=== PATIENT | female | born 1935 | race Caucasian/White ===

== ENCOUNTER 2016-10-03 17:51 | Inpatient (IN) | payer OTHER ==
[~2016-10-03] VITALS: Ht 165.1 cm; Wt 70.3 kg
[2016-10-03 20:02] LABS: EOSINOPHIL (%) 0.7 % (0-5); EOSINOPHIL COUNT 0.1 K/uL (0-0.3); HEMATOCRIT 37.6 % (36.0-46.0); IMMATURE GRANULOCYTE (%) 0.6 % (0.0-0.7); IMMATURE GRANULOCYTE COUNT 0.1 K/uL; INSTRUMENT ABS NEUTROPHIL CT 7.7 K/uL; LYMPHOCYTE COUNT 0.7 K/uL (1.0-2.8); MCH 30.2 PG (29.0-34.0); MCV 91.5 FL (83-99); MEAN PLAT.VOLUME 8.4 uM^3 (9.5-12.4); MONOCYTE (%) 3.8 % (3-12); MONOCYTE COUNT 0.3 K/uL (0-0.8); NEUTROPHIL (%) 86.5 % (45-76); NEUTROPHIL COUNT 7.7 K/uL (1.8-6.4); PLATELET COUNT 211 K/uL (156-360); RBC DIS.WIDTH-CV 13.5 % (11.8-14.6); RBC DIS.WIDTH-SD 45.9 % (39-53); RED BLOOD COUNT 4.11 M/uL (3.80-5.20); WHITE BLOOD COUNT 8.9 K/uL (4.1-10.2)
[2016-10-03] MEDS ORDERED: LEVOTHYROXINE50 MCG PO (20:13)
[2016-10-03 20:14] LABS: INTER. NORMALIZED RATIO 1.1; PROTHROMBIN TIME 10.7 (9.2-11.2); PTT 33.1 (25-32)
[2016-10-03] MEDS ORDERED: ASPIRIN81 M2 PO (20:14)
[2016-10-03] MEDS ORDERED: NAPROXEN250 MG PO (20:14)
[2016-10-03 22:51] LABS: CHLORIDE 108 mEq/L (99-109); POTASSIUM 4.6 mEq/L (3.7-5.4); SODIUM 140 mEq/L (136-147)
[2016-10-03 22:53] LABS: GLUCOSE 104 mg/dL (70-99)
[2016-10-03 22:54] LABS: ANION GAP 9 MEQ/L (2-14)
[2016-10-03 22:55] LABS: TOTAL BILIRUBIN 0.7 mg/dL (0.0-1.0)
[2016-10-03 22:56] LABS: ALKALINE PHOSPHATASE 76 IU/L (3-129)
[2016-10-03 22:57] LABS: GFR ESTIMATE (CALCULATED) 57 mL/min/
[2016-10-03 22:58] LABS: UREA NITROGEN (BUN) 19 mg/dL (9-23)
[2016-10-04] VITALS (9 sets, daily range): BP systolic 135–190; BP diastolic 67–84
[2016-10-04 01:38] LABS: ADD MIUA? YES; BILIRUBIN NEGATIVE; BLOOD NEGATIVE; COLOR YELLOW ((YELLOW)); GLUCOSE (STRIP) NEGATIVE; KETONES 5; LEUKOCYTES TRACE; NITRITE NEGATIVE; PROTEIN (STRIP) NEGATIVE; SPECIFIC GRAVITY 1.014 (1.000-1.030); UROBILINOGEN 0.2 MG/DL (0.2-1.0)
[2016-10-04 01:42] LABS: BACTERIA RARE /HPF; EPITHELIAL CELLS NONE SEEN /HPF; MUCUS TRACE /LPF; RED BLOOD CELLS 0-5 /HPF (0-5); UCUL ADDED? NO; WHITE BLOOD CELLS 0-5 /HPF (0-5)
[2016-10-05 04:10] VITALS: BP 109/55
[2016-10-05 06:19] LABS: ANION GAP 6 MEQ/L (2-14); CHLORIDE 107 MEQ/L (99-109); POTASSIUM 4.4 MEQ/L (3.7-5.4); SAMPLE HEMOLYSIS CHECK 0; SAMPLE ICTERIC CHECK 0; SAMPLE LIPEMIA CHECK 0; SODIUM 138 MEQ/L (136-147)
[2016-10-05 06:24] LABS: GFR ESTIMATE (CALCULATED) 57 mL/min/; GLUCOSE 109 mg/dL (70-99); UREA NITROGEN (BUN) 18 mg/dL (9-23)
[2016-10-05 06:34] LABS: HEMATOCRIT 28.1 % (36.0-46.0); MCH 30.6 PG (29.0-34.0); MCHC 32.7 G/DL (30.0-36.0); MCV 93.4 FL (83-99); MEAN PLAT.VOLUME 8.9 uM^3 (9.5-12.4); PLATELET COUNT 152 K/uL (156-360); RBC DIS.WIDTH-CV 13.8 % (11.8-14.6); RBC DIS.WIDTH-SD 47.5 % (39-53)
[2016-10-05 06:35] LABS: RED BLOOD COUNT 3.01 M/uL (3.80-5.20); WHITE BLOOD COUNT 14.3 K/uL (4.1-10.2)
[2016-10-05 08:18] VITALS: BP 116/55
[2016-10-05 11:55] VITALS: BP 130/62
[2016-10-05 16:05] VITALS: BP 134/63
[2016-10-05 23:45] VITALS: BP 124/57
[2016-10-06 06:10] LABS: ANION GAP 6 MEQ/L (2-14); CHLORIDE 112 MEQ/L (99-109); GFR ESTIMATE (CALCULATED) 57 mL/min/; GLUCOSE 106 mg/dL (70-99); POTASSIUM 4.1 MEQ/L (3.7-5.4); SAMPLE HEMOLYSIS CHECK 0; SAMPLE ICTERIC CHECK 0; SAMPLE LIPEMIA CHECK 0; SODIUM 140 MEQ/L (136-147); UREA NITROGEN (BUN) 19 mg/dL (9-23)
[2016-10-06 06:32] LABS: MCH 29.7 PG (29.0-34.0); MCV 92.9 FL (83-99); PLATELET COUNT 135 K/uL (156-360); RBC DIS.WIDTH-CV 14.2 % (11.8-14.6); RBC DIS.WIDTH-SD 48.1 % (39-53); RED BLOOD COUNT 2.69 M/uL (3.80-5.20)
[2016-10-06 07:00] LABS: WHITE BLOOD COUNT 6.7 K/uL (4.1-10.2)
[2016-10-06 07:52] VITALS: BP 154/67
[2016-10-06 14:24] LABS: HEMATOCRIT 26.5 % (36.0-46.0); MCV 93.6 FL (83-99)
[2016-10-06 16:10] VITALS: BP 179/74
[2016-10-06 23:38] VITALS: BP 156/79
[2016-10-07 05:41] LABS: HEMATOCRIT 24.6 % (36.0-46.0); MCH 30.6 PG (29.0-34.0); MCHC 32.9 G/DL (30.0-36.0); MCV 92.8 FL (83-99); MEAN PLAT.VOLUME 9.1 uM^3 (9.5-12.4); PLATELET COUNT 146 K/uL (156-360); RBC DIS.WIDTH-CV 14.1 % (11.8-14.6); RBC DIS.WIDTH-SD 47.7 % (39-53); RED BLOOD COUNT 2.65 M/uL (3.80-5.20); WHITE BLOOD COUNT 5.9 K/uL (4.1-10.2)
[2016-10-07 05:52] LABS: ANION GAP 5 MEQ/L (2-14); CHLORIDE 109 MEQ/L (99-109); GFR ESTIMATE (CALCULATED) > 59 mL/min/; GLUCOSE 87 mg/dL (70-99); POTASSIUM 3.9 MEQ/L (3.7-5.4); SAMPLE HEMOLYSIS CHECK 0; SAMPLE ICTERIC CHECK 0; SAMPLE LIPEMIA CHECK 0; SODIUM 139 MEQ/L (136-147); UREA NITROGEN (BUN) 13 mg/dL (9-23)
[2016-10-07 08:36] VITALS: BP 188/80
[2016-10-07] MEDS ORDERED: CLONIDINE HCL0.1 MG PO (10:53)
[2016-10-07] MEDS ORDERED: LOPRESSOR25 MG PO (10:53)
[2016-10-07] MEDS ORDERED: THERAGRAN1 TABLET PO (10:53)
[2016-10-07] MEDS ORDERED: VITAMIN D-32000 UNI2 PO (10:53)
[2016-10-07] MEDS ORDERED: HYDROCODON-ACE1 EAC7 PO (10:53)
[2016-10-07] MEDS ORDERED: KADIAN10 MG IV (16:32)
== END 2016-10-07 15:55 | DRG 482 ==
LOC: EME 17:51 → EDOF 20:53 → 3EAST 20:53
PROVIDERS: Emergency Medicine; Hospitalist; Physician Assistant Medical
PROC: 0QS706Z Reposition Left Upper Femur with Intramedullary Internal Fixation Device, Open Approach (ICD-10-PCS; principal; 2016-10-04)
DX: S72.142A Displaced intertrochanteric fracture of left femur, initial encounter for closed fracture (principal); I12.9 Hypertensive chronic kidney disease with stage 1 through stage 4 chronic kidney disease, or unspecified chronic kidney disease; N18.3 Chronic kidney disease, stage 3 (moderate); D64.9 Anemia, unspecified; E03.9 Hypothyroidism, unspecified; W19.XXXA Unspecified fall, initial encounter; M19.90 Unspecified osteoarthritis, unspecified site; Z79.82 Long term (current) use of aspirin; R01.1 Cardiac murmur, unspecified; R09.02 Hypoxemia; Y92.9 Unspecified place or not applicable; Y99.9 Unspecified external cause status
CPT/HCPCS: 71010; 73501; 73502; 76000; 80048; 80053; 81003; 82272; 82306; 85014; 85018; 85025; 85027; 85610; 85730; 86850; 86900; 86901; 93005; 93306; 94799; 99281; 99285; C1713; J0690; J1650; J2270; J3010; J7030; J7040

== ENCOUNTER 2016-10-07 09:58 | Inpatient (IN) | payer OTHER ==
[~2016-10-07] VITALS: Ht 165.1 cm; Wt 72.4 kg
[~2016-10-07 09:58] MED LIST: ASPIRIN81 M2 PO; LEVOTHYROXINE50 MCG PO; NAPROXEN250 MG PO
[2016-10-07] MEDS ORDERED: CLONIDINE HCL0.1 MG PO (10:53)
[2016-10-07] MEDS ORDERED: VITAMIN D-32000 UNI2 PO (10:53)
[2016-10-07] MEDS ORDERED: LOPRESSOR25 MG PO (10:53)
[2016-10-07] MEDS ORDERED: THERAGRAN1 TABLET PO (10:53)
[2016-10-07] MEDS ORDERED: HYDROCODON-ACE1 EAC7 PO (10:53)
[2016-10-07 16:00] VITALS: BP 190/76
[2016-10-07] MEDS ORDERED: KADIAN10 MG IV (16:32)
[2016-10-07 17:18] VITALS: BP 202/83
[2016-10-07 17:19] VITALS: BP 178/78
[2016-10-08 05:43] LABS: HEMATOCRIT 23.9 % (36.0-46.0); MCH 30.2 PG (29.0-34.0); MCHC 32.6 G/DL (30.0-36.0); MCV 92.6 FL (83-99); MEAN PLAT.VOLUME 9.2 uM^3 (9.5-12.4); PLATELET COUNT 161 K/uL (156-360); RBC DIS.WIDTH-CV 14.2 % (11.8-14.6); RBC DIS.WIDTH-SD 48.8 % (39-53); RED BLOOD COUNT 2.58 M/uL (3.80-5.20); WHITE BLOOD COUNT 6.5 K/uL (4.1-10.2)
[2016-10-08 05:58] LABS: ALKALINE PHOSPHATASE 53 IU/L (3-129); ANION GAP 7 MEQ/L (2-14); CHLORIDE 107 MEQ/L (99-109); GFR ESTIMATE (CALCULATED) > 59 mL/min/; GLUCOSE 93 mg/dL (70-99); POTASSIUM 4.2 MEQ/L (3.7-5.4); SAMPLE HEMOLYSIS CHECK 0; SAMPLE ICTERIC CHECK 0; SAMPLE LIPEMIA CHECK 0; SODIUM 140 MEQ/L (136-147); UREA NITROGEN (BUN) 13 mg/dL (9-23)
[2016-10-08 06:12] VITALS: BP 170/76
[2016-10-08 15:00] VITALS: BP 143/67
[2016-10-09 05:00] VITALS: BP 148/65
[2016-10-09 05:53] LABS: HEMATOCRIT 23.8 % (36.0-46.0); MCH 29.9 PG (29.0-34.0); MCHC 32.8 G/DL (30.0-36.0); MCV 91.2 FL (83-99); MEAN PLAT.VOLUME 8.9 uM^3 (9.5-12.4); PLATELET COUNT 187 K/uL (156-360); RBC DIS.WIDTH-SD 46.5 % (39-53); RED BLOOD COUNT 2.61 M/uL (3.80-5.20); WHITE BLOOD COUNT 7.1 K/uL (4.1-10.2)
[2016-10-09 15:21] VITALS: BP 116/58
[2016-10-10 04:20] VITALS: BP 167/72
[2016-10-10 15:22] VITALS: BP 141/63
[2016-10-11 05:32] VITALS: BP 139/63
[2016-10-11 10:04] LABS: POINT-OF-CARE METER ID UU14174215
[2016-10-11 10:12] LABS: EOSINOPHIL (%) 1.6 % (0-5); EOSINOPHIL COUNT 0.1 K/uL (0-0.3); HEMATOCRIT 26.5 % (36.0-46.0); IMMATURE GRANULOCYTE (%) 1.6 % (0.0-0.7); IMMATURE GRANULOCYTE COUNT 0.1 K/uL; INSTRUMENT ABS NEUTROPHIL CT 5.2 K/uL; LYMPHOCYTE COUNT 1.1 K/uL (1.0-2.8); MCH 30.2 PG (29.0-34.0); MCHC 32.5 G/DL (30.0-36.0); MEAN PLAT.VOLUME 8.5 uM^3 (9.5-12.4); MONOCYTE (%) 6.9 % (3-12); MONOCYTE COUNT 0.5 K/uL (0-0.8); NEUTROPHIL (%) 73.6 % (45-76); NEUTROPHIL COUNT 5.2 K/uL (1.8-6.4); RBC DIS.WIDTH-CV 14.6 % (11.8-14.6); RBC DIS.WIDTH-SD 48.8 % (39-53); RED BLOOD COUNT 2.85 M/uL (3.80-5.20); WHITE BLOOD COUNT 7.1 K/uL (4.1-10.2)
[2016-10-11 10:13] LABS: PLATELET COUNT 246 K/uL (156-360)
[2016-10-11 10:41] LABS: TROP-I INTERPRETATION NEGATIVE; TROPONIN-I < 0.01 ng/mL (0.0-0.30)
[2016-10-11 10:57] LABS: CHLORIDE 106 mEq/L (99-109); SODIUM 137 mEq/L (136-147)
[2016-10-11 10:58] LABS: GLUCOSE 100 mg/dL (70-99)
[2016-10-11 11:00] LABS: ANION GAP 11 MEQ/L (2-14)
[2016-10-11 11:02] LABS: GFR ESTIMATE (CALCULATED) > 59 mL/min/
[2016-10-11 11:03] LABS: UREA NITROGEN (BUN) 16 mg/dL (9-23)
[2016-10-11 16:01] VITALS: BP 177/77
[2016-10-12 04:50] VITALS: BP 168/74
[2016-10-12 15:00] VITALS: BP 140/65
[2016-10-13 04:55] LABS: MCV 94.1 FL (83-99); MEAN PLAT.VOLUME 8.6 uM^3 (9.5-12.4); PLATELET COUNT 298 K/uL (156-360); RBC DIS.WIDTH-CV 16.2 % (11.8-14.6); RBC DIS.WIDTH-SD 49.5 % (39-53); RED BLOOD COUNT 2.87 M/uL (3.80-5.20); WHITE BLOOD COUNT 7.4 K/uL (4.1-10.2)
[2016-10-13 05:30] VITALS: BP 165/77
[2016-10-13 14:41] VITALS: BP 142/65
[2016-10-14 05:00] LABS: HEMATOCRIT 28.2 % (36.0-46.0); MCH 30.3 PG (29.0-34.0); MCHC 31.6 G/DL (30.0-36.0); MCV 95.9 FL (83-99); MEAN PLAT.VOLUME 8.7 uM^3 (9.5-12.4); PLATELET COUNT 304 K/uL (156-360); RBC DIS.WIDTH-CV 16.9 % (11.8-14.6); RBC DIS.WIDTH-SD 51.9 % (39-53); RED BLOOD COUNT 2.94 M/uL (3.80-5.20); WHITE BLOOD COUNT 7.1 K/uL (4.1-10.2)
[2016-10-14 05:09] VITALS: BP 162/79
[2016-10-14 15:00] VITALS: BP 143/72
[2016-10-15 05:22] VITALS: BP 158/67
[2016-10-15 06:00] LABS: HEMATOCRIT 27.2 % (36.0-46.0); MCH 31.1 PG (29.0-34.0); MCHC 32.4 G/DL (30.0-36.0); MCV 96.1 FL (83-99); MEAN PLAT.VOLUME 8.5 uM^3 (9.5-12.4); PLATELET COUNT 331 K/uL (156-360); RBC DIS.WIDTH-CV 17.3 % (11.8-14.6); RBC DIS.WIDTH-SD 53.9 % (39-53); RED BLOOD COUNT 2.83 M/uL (3.80-5.20); WHITE BLOOD COUNT 9.4 K/uL (4.1-10.2)
[2016-10-15 15:22] VITALS: BP 120/60
[2016-10-16 05:24] VITALS: BP 148/66
[2016-10-16 15:30] VITALS: BP 171/74
[2016-10-16] MEDS ORDERED: ELIQUIS5 MG PO (19:06)
[2016-10-16] MEDS ORDERED: FERROUS SULFAT325 MG PO (19:06)
[2016-10-16] MEDS ORDERED: DOCUSATE SODIU100 MG PO (19:07)
[2016-10-16] MEDS ORDERED: POLYETHYLENE GL17 GM PO (19:07)
[2016-10-16] MEDS ORDERED: SENNA PLUS TAB1 EACH PO (19:07)
[2016-10-16] MEDS ORDERED: PANTOPRAZOLE SO40 MG PO (19:08)
[2016-10-16] MEDS ORDERED: LIDOCAINE700 MG TD (19:09)
[2016-10-16] MEDS ORDERED: FOLIC ACID1 MG PO (19:09)
[2016-10-16] MEDS ORDERED: ASCORBIC ACID500 M3 PO (19:09)
[2016-10-16] MEDS ORDERED: HYDROCODON-ACE1 EAC7 PO (19:10)
[2016-10-17 04:18] VITALS: BP 158/70
[2016-10-17 05:30] LABS: HEMATOCRIT 28.7 % (36.0-46.0); MCH 31.2 PG (29.0-34.0); MCHC 32.1 G/DL (30.0-36.0); MCV 97.3 FL (83-99); MEAN PLAT.VOLUME 8.4 uM^3 (9.5-12.4); PLATELET COUNT 356 K/uL (156-360); RBC DIS.WIDTH-SD 62.3 % (39-53); RED BLOOD COUNT 2.95 M/uL (3.80-5.20); WHITE BLOOD COUNT 7.6 K/uL (4.1-10.2)
[2016-10-17 05:44] LABS: ALKALINE PHOSPHATASE 153 IU/L (3-129); ANION GAP 7 MEQ/L (2-14); CHLORIDE 105 MEQ/L (99-109); GFR ESTIMATE (CALCULATED) > 59 mL/min/; GLUCOSE 107 mg/dL (70-99); POTASSIUM 4.1 MEQ/L (3.7-5.4); SAMPLE HEMOLYSIS CHECK 0; SAMPLE ICTERIC CHECK 0; SAMPLE LIPEMIA CHECK 0; SODIUM 137 MEQ/L (136-147); UREA NITROGEN (BUN) 13 mg/dL (9-23)
[2016-10-17 15:19] VITALS: BP 136/61
[2016-10-18 05:18] VITALS: BP 144/69
== END 2016-10-18 14:06 | DRG 559 ==
LOC: 3WEST 09:58
PROVIDERS: Hospitalist; Internal Medicine Hematology & Oncology; Physical Medicine & Rehabilitation Pain Medicine
DX: S72.142D Displaced intertrochanteric fracture of left femur, subsequent encounter for closed fracture with routine healing (principal); W19.XXXD Unspecified fall, subsequent encounter; Z98.890 Other specified postprocedural states; I82.412 Acute embolism and thrombosis of left femoral vein; D62 Acute posthemorrhagic anemia; I10 Essential (primary) hypertension; E03.9 Hypothyroidism, unspecified; M19.90 Unspecified osteoarthritis, unspecified site; M25.512 Pain in left shoulder; M25.511 Pain in right shoulder; E83.51 Hypocalcemia; E77.8 Other disorders of glycoprotein metabolism; D69.6 Thrombocytopenia, unspecified; S51.811A Laceration without foreign body of right forearm, initial encounter; R47.81 Slurred speech; K59.00 Constipation, unspecified; M25.562 Pain in left knee; M25.552 Pain in left hip; G89.18 Other acute postprocedural pain; E86.0 Dehydration; G93.40 Encephalopathy, unspecified
CPT/HCPCS: 70450; 70551; 73502; 80048; 80053; 82140; 82607; 82948; 83605; 83930; 84443; 84484; 85025; 85027; 93971; 94799; 97110 GO; 97530 GP; J1650; J7040